=== PATIENT | male | born 1980 | race African-American/Black ===

== ENCOUNTER 2016-10-12 05:33 | Emergency (ER) | payer OTHER ==
[~2016-10-12] VITALS: Ht 193 cm; Wt 104.3 kg
[~2016-10-12 05:33] MED LIST: FAMVIR125 MG PO
[2016-10-12] MEDS ORDERED: COZAAR 50 MG TA50 M2 PO (05:42)
[2016-10-12] MEDS ORDERED: PROTONIX40 M1 PO (05:43)
[2016-10-12] MEDS ORDERED: FAMCYCLOVIR 50500 M1 PO (05:54)
[2016-10-12] MEDS ORDERED: HYDROCHLOROTH12.5 M1 PO (05:55)
[2016-10-12 06:55] VITALS: BP 116/76
== END 2016-10-12 06:57 | disposition home or self-care (01) ==
LOC: ER 05:33
DX: J06.9 Acute upper respiratory infection, unspecified (principal); I10 Essential (primary) hypertension; F17.210 Nicotine dependence, cigarettes, uncomplicated